=== PATIENT | male | born 1965 | race American Indian/Alaskan Native ===

== ENCOUNTER 2018-08-01 17:30 | Emergency (ER) | payer BC ==
[2018-08-01 17:31] VITALS: BMI 46.0
[2018-08-01 17:56] VITALS: PULSE 91; RESP 18; O2SAT 97
[2018-08-01] MEDS ORDERED: Tmp-Smz 800 mg-160 mg DS Tab PO STA (18:06)
--- NOTE | 2018-08-01 18:14 | ED PDOC ---
Arrival/HPI - General Chief Complaint: Abnormal Skin Integrity Time Seen by Provider: 08/01/18 17:33 Historian: Patient - History of Present Illness Narrative History of Present Illness (Text): 08/01/18 18:15 53yr old male presents today with a 1 month history of swelling/abscess to right axilla. pt states for the past month he has been having intermittent pain, swelling and purulent discharge from right axilla. pt states at times he was having bloody discharge. pt states today he notice blood coming from 2 different locations on the right axilla and patient was concerned that he had a bleeding vein. pt denies fever/chills. c/o minimal pain only with palpation. no other complaints. Past Medical History - Provider Review Nursing Documentation Reviewed: Yes - Travel History Have you recently traveled outside [place] w/in the past 3 mons?: No - Tetanus Immunization Tetanus Immunization: Unknown - Cardiac Hx Hypertension: Yes - Endocrine/Metabolic Hx Diabetes Mellitus Type 2: Yes - Psychiatric Hx Depression: No Hx Emotional Abuse: No Hx Physical Abuse: No Hx Substance Use: No - Past Surgical History Past Surgical History: No Previous - Suicidal Assessment Feels Threatened In Home Enviroment: No Family/Social History - Physician Review Nursing Documentation Reviewed: Yes Family/Social History: Unknown Family HX Smoking Status: Former Smoker Hx Alcohol Use: Yes Frequency of alcohol use: Socially Hx Substance Use: No Hx Substance Use Treatment: No Allergies/Home Meds Allergies/Adverse Reactions: Allergies No Known Allergies Allergy (Verified 08/01/18 17:41) Home Medications: Home Meds Medication Instructions Recorded Confirmed Losartan Potassium 50 mg PO DAILY 08/01/18 08/01/18 glyBURIDE [Micronase] 5 mg PO DAILY 08/01/18 08/01/18 metFORMIN [glucOPHAGE] 500 mg PO DAILY 08/01/18 08/01/18 Review of Systems - Review of Systems Constitutional: absent: Fatigue, Fevers Respiratory: absent: SOB, Cough Cardiovascular: absent: Chest Pain, Palpitations Gastrointestinal: absent: Abdominal Pain, Nausea, Vomiting Genitourinary Male: absent: Dysuria Musculoskeletal: absent: Back Pain, Neck Pain Skin: Skin Lesions, Abscess Neurological: absent: Headache, Dizziness Psychiatric: absent: Anxiety, Depression Physical Exam Vital Signs Reviewed: Yes Vital Signs Temp Pulse Resp BP Pulse Ox 08/01/18 17:38 97.8 F 91 H 18 170/83 H 97 Temperature: Afebrile Blood Pressure: Hypertensive Pulse: Regular Respiratory Rate: Normal Appearance: Positive for: Well-Appearing, Non-Toxic, Comfortable Pain Distress: None Mental Status: Positive for: Alert and Oriented X 3 - Systems Exam Head: Present: Atraumatic Mouth: Present: Moist Mucous Membranes Neck: Present: Normal Range of Motion Respiratory/Chest: Present: Clear to Auscultation, Good Air Exchange. No: Respiratory Distress, Accessory Muscle Use Cardiovascular: Present: Regular Rate and Rhythm, Normal S1, S2. No: Murmurs Upper Extremity: Present: Normal ROM Lower Extremity: Present: Normal ROM Neurological: Present: GCS=15, Speech Normal Skin: Present: Warm, Dry, Normal Color, Other (right axilla; there is a 4cm linear area of induration with 2 separate small pinpoint openings with small amount of serosanguinous discharge. minimal tenderness. no surrounding erythema; ) Psychiatric: Present: Alert, Oriented x 3 Medical Decision Making ED Course and Treatment: 08/01/18 18:10 Patient is nontoxic well-appearing in no distress. Vital signs are stable. bactrim po Patient was advised to use warm compresses warm soaks. pt was advised to take abx as prescribed and f/u with surgeon within the next 2 days. pt was advised return immediately if symptoms worsen persist or if new symptoms develop Patient verbalizes understanding of discharge instructions and need for immediate followup. Impression: hidradenitis suppurativa motrin every 6 hours as need for pain bactrim 1 tablet twice daily x 7 days. warm compresses, warm soaks frequently follow up with the surgeon within the next 2 days Follow up with the primary care physician within the next 2 days. return immediately if symptoms worsen,persist or if new symptoms develop: high fevers, increasing pain, redness, swelling purulent discharge or if any other concerning symptoms develop. Disposition/Present on Arrival - Present on Arrival Any Indicators Present on Arrival: No History of DVT/PE: No History of Uncontrolled Diabetes: No Urinary Catheter: No History of Decub. Ulcer: No History Surgical Site Infection Following: None - Disposition Have Diagnosis and Disposition been Completed?: Yes Diagnosis: Hidradenitis suppurativa Disposition: HOME/ ROUTINE Disposition Time: 18:07 Patient Plan: Discharge Condition: GOOD Discharge Instructions (ExitCare): Hidradenitis Suppurativa Additional Instructions: motrin every 6 hours as need for pain bactrim 1 tablet twice daily x 7 days. warm compresses, warm soaks frequently follow up with the surgeon within the next 2 days Follow up with the primary care physician within the next 2 days. return immediately if symptoms worsen,persist or if new symptoms develop: high fevers, increasing pain, redness, swelling purulent discharge or if any other concerning symptoms develop. Prescriptions: Ibuprofen [Motrin] 600 mg PO Q6H PRN #20 tab PRN Reason: pain/fever reduction Sulfamethoxazole/Trimethoprim [Bactrim DS 800 mg-160 mg] 1 tab PO BID #14 tab Referrals: Corey Sparrow MD [Primary Care Provider] - Follow up with primary Jonathan Bonilla MD [Staff Provider] - Follow up with primary Bakari Hewitt MD [Staff Provider] - Follow up with primary
[2018-08-01 18:35] VITALS: BP 159/86; TEMP 98
== END 2018-08-01 18:28 | disposition home or self-care (01) ==
LOC: ED 17:30
DX: L73.2 Hidradenitis suppurativa (principal)

== ENCOUNTER 2018-09-13 09:03 | Outpatient (CLI) | payer BC | END 2018-09-13 09:04 | disposition home or self-care (01) | LOC: CARDIO 09:03 | DX: I10 Essential (primary) hypertension (principal) ==

== ENCOUNTER 2018-11-26 17:21 | Emergency (ER) | payer OTHER, BC ==
[2018-11-26 17:44] VITALS: TEMP 97.9; BMI 47.5
--- NOTE | 2018-11-26 19:14 | ED PDOC ---
Arrival/HPI - General Chief Complaint: Upper Extremity Problem/Injury Time Seen by Provider: 11/26/18 17:28 - History of Present Illness Narrative History of Present Illness (Text): 11/26/18 18:50 53 y/o male with PMH of HTN and DM presents to the Emergency department c/o left shoulder and elbow pain s/p injury this afternoon at 3:30pm. Pt tripped and fell at work. Pt was wearing a hard hat, and denies head strike or LOC. Pt tried to work through the pain but realized he was unable to lift his left arm over his head secondary to pain. Has not taken any medication for pain. Denies numbness, weakness, paresthesias, open wounds, pain elsewhere. Past Medical History - Tetanus Immunization Tetanus Immunization: Unknown - Cardiac Hx Hypertension: Yes - Endocrine/Metabolic Hx Diabetes Mellitus Type 2: Yes - Psychiatric Hx Depression: No Hx Emotional Abuse: No Hx Physical Abuse: No Hx Substance Use: No - Past Surgical History Past Surgical History: No Previous - Suicidal Assessment Feels Threatened In Home Enviroment: No Family/Social History Smoking Status: Former Smoker Hx Alcohol Use: Yes Frequency of alcohol use: Socially Hx Substance Use: No Hx Substance Use Treatment: No Allergies/Home Meds Allergies/Adverse Reactions: Allergies No Known Allergies Allergy (Verified 11/26/18 17:52) Home Medications: Home Meds Medication Instructions Recorded Confirmed Losartan Potassium 50 mg PO DAILY 08/01/18 11/26/18 glyBURIDE [Micronase] 5 mg PO DAILY 08/01/18 11/26/18 metFORMIN [glucOPHAGE] 500 mg PO DAILY 08/01/18 11/26/18 Review of Systems - Review of Systems Constitutional: Normal Eyes: Normal ENT: Normal Respiratory: Normal Cardiovascular: Normal Gastrointestinal: Normal Genitourinary Male: Normal Musculoskeletal: Arthralgias Skin: Normal Neurological: Normal Endocrine: Normal Hemo/Lymphatic: Normal Psychiatric: Normal Physical Exam Vital Signs Reviewed: Yes Vital Signs Temp Pulse Resp BP Pulse Ox 11/26/18 17:38 97.9 F 95 H 18 176/67 H 95 Temperature: Afebrile Blood Pressure: Normal Pulse: Regular Respiratory Rate: Normal Appearance: Positive for: Well-Appearing, Non-Toxic, Comfortable Pain Distress: None Mental Status: Positive for: Alert and Oriented X 3 - Systems Exam Head: Present: Atraumatic, Normocephalic Pupils: Present: PERRL Extroacular Muscles: Present: EOMI Conjunctiva: Present: Normal Mouth: Present: Moist Mucous Membranes Neck: Present: Normal Range of Motion Respiratory/Chest: Present: Clear to Auscultation, Good Air Exchange. No: Respiratory Distress, Accessory Muscle Use Cardiovascular: Present: Regular Rate and Rhythm, Normal S1, S2, Peripheal Pulses Present Back: Present: Normal Inspection. No: CVA Tenderness, Midline Tenderness, Paraspinal Tenderness Upper Extremity: Present: Normal Inspection, NORMAL PULSES, Tenderness (anterior left shoulder, posterior left elbow), Neurovascularly Intact, Capillary Refill < 2s. No: Cyanosis, Edema, Normal ROM (decreased at left shoulder), Temperature Abnormalties Lower Extremity: Present: Normal ROM Neurological: Present: GCS=15, CN II-XII Intact, Speech Normal, Motor Func Grossly Intact, Normal Sensory Function, Gait Normal Skin: Present: Warm, Dry, Normal Color. No: Rashes Psychiatric: Present: Alert, Oriented x 3, Normal Insight, Normal Concentration, Normal Affect, Normal Mood Medical Decision Making ED Course and Treatment: Initial Plan: * XR Left Shoulder * XR Left Elbow * Toradol Xrays read negative for acute fracture or dislocation by [facility] rad Pt placed in shoulder immobilizer prior to discharge by technical support intern. Advised PMD and orthopedic followup. Diagnostic testing results and plan of care discussed with patient. Strict instructions given regarding prescription use, importance of followup, and signs/symptoms to return to ER including or any other new/worsening symptoms. Pt verbalized understanding of discussion. Patient is A&Ox3, ambulating with steady gait, with vital signs stable for discharge. - RAD Interpretation Radiology Orders: 11/26/18 18:14 ELBOW LEFT 3 VIEWS ROUTINE [RAD] Stat SHOULDER LEFT [RAD] Stat - Medication Orders Current Medication Orders: Discontinued Medications Ketorolac Tromethamine (Toradol) 60 mg IM STAT STA Stop: 11/26/18 18:27 Last Admin: 11/26/18 18:46 Dose: 60 mg [facility] Pain Assessment Document 11/26/18 18:46 OCS (Rec: 11/26/18 18:47 OCS [id number]) Pain Reassessment Is this a pain reassessment? No Sleep Is patient sleeping during reassessment? No Presence of Pain Presence of Pain Yes Pain Scale Used Protocol: PSCALES Pain Scale Used Numeric Location Left, Right or Bilateral Left Upper or Lower Upper Pain Location Body Site Arm Elbow Description Description Constant Intensity of Pain at present 9 Pain Behavior Facial Grimacing Aggravating Factors ADL's IM Administration Charges Document 11/26/18 18:46 OCS (Rec: 11/26/18 18:47 OCS [id number]) Injection Site MAR Injection Site Right Arm Charges for Administration # of IM Administrations 1 Disposition/Present on Arrival - Present on Arrival History of DVT/PE: No History of Uncontrolled Diabetes: No Urinary Catheter: No History of Decub. Ulcer: No History Surgical Site Infection Following: None - Disposition Diagnosis: Shoulder injury Disposition: HOME/ ROUTINE Condition: STABLE Additional Instructions: Keep shoulder in immobilizer until followup Ibuprofen every 8 hours with food as needed for pain Rest, no strenuous activity or heavy lifting Followup with orthopedics within 2 days Followup with primary doctor within 2 days Return to ER with any new/worsening symptoms Prescriptions: Ibuprofen [Motrin Tab] 600 mg PO Q8 PRN #30 tab PRN Reason: Pain, Moderate (4-7) Referrals: Ryne Lorenzo III, MD [Medical Doctor] - Follow up with primary Nino Horn MD [Primary Care Provider] - Follow up with primary Forms: [employer] ([place]), WORK NOTE
[2018-11-26 20:28] VITALS: BP 134/81; PULSE 89; RESP 16; O2SAT 100
--- NOTE | 2018-11-27 10:41 | RAD ---
Date of service: 11/26/2018 PROCEDURE: Radiographs of the Left Shoulder HISTORY: fall, left shoulder limited ROM COMPARISON: No prior. FINDINGS: BONES: Normal. No fracture. JOINTS: Moderate degenerative changes in the acromioclavicular joint. SOFT TISSUES: Normal. OTHER FINDINGS: The report concurs with the preliminary [facility] report IMPRESSION: No acute findings
--- NOTE | 2018-11-27 10:43 | RAD ---
Date of service: 11/26/2018 PROCEDURE: Radiographs of the left elbow. HISTORY: left elbow posterior swelling, tenderness COMPARISON: No prior. FINDINGS: BONES: Normal. No fracture. JOINTS: Moderate degenerative changes are seen in the elbow joint with osteophytes and bone fragments. SOFT TISSUES: Normal. JOINT EFFUSION: None. OTHER FINDINGS: The report concurs with the preliminary [facility] report IMPRESSION: No acute fracture
== END 2018-11-26 20:35 | disposition home or self-care (01) ==
LOC: ED 17:21
DX: S49.92XA Unspecified injury of left shoulder and upper arm, initial encounter (principal); W01.0XXA Fall on same level from slipping, tripping and stumbling without subsequent striking against object, initial encounter; Y92.89 Other specified places as the place of occurrence of the external cause; Y99.0 Civilian activity done for income or pay
CPT/HCPCS: 73030; 73080; 96372; 99284; J1885